=== PATIENT | male | born 1990 | race African-American/Black ===

== ENCOUNTER 2017-12-21 09:56 | Emergency (ER) | payer SELFPAY | END 2017-12-21 10:36 | disposition home or self-care (01) | LOC: NAV ERS 09:56 | DX: J45.991 Cough variant asthma (principal) | CPT/HCPCS: 99283 ==

== ENCOUNTER 2018-01-01 00:05 | Emergency (ER) | payer SELFPAY ==
[2018-01-01] MEDS ORDERED: predniSONE 20 MG TAB ONE (00:42)
== END 2018-01-01 00:58 | disposition home or self-care (01) ==
LOC: NAV ERS 00:05
DX: J45.909 Unspecified asthma, uncomplicated (principal)
CPT/HCPCS: 94640; J7506; J7620

== ENCOUNTER 2018-03-13 02:03 | Emergency (ER) | payer SELFPAY ==
[2018-03-13] MEDS ORDERED: Dexamethasone 4 mg/ml Vial ONE (02:28)
== END 2018-03-13 02:36 | disposition home or self-care (01) ==
LOC: NAV ERS 02:03
DX: J45.901 Unspecified asthma with (acute) exacerbation (principal); F17.210 Nicotine dependence, cigarettes, uncomplicated
CPT/HCPCS: 94640; 96372; J1100; J7620

== ENCOUNTER 2019-09-09 16:51 | Emergency (ER) | payer SELFPAY ==
[2019-09-09] MEDS ORDERED: predniSONE 20 MG TAB ONE (17:32)
[2019-09-09] MEDS ORDERED: Ventolin HFA Inhaler 60 PUFF INHALER ONE (17:32)
--- NOTE | 2019-09-09 18:23 | RAD ---
EXAM: CHEST TWO VIEWS 09/09/2019 6:20 PM HISTORY: Cough COMPARISON: 2 view chest radiograph dated June 15, 2018 from [facility]. FINDINGS: Lungs: No acute airspace consolidation. Heart: Normal in size and contour. Pulmonary Vessels: Normal. Costophrenic Angles: Clear. Pneumothorax: None. Osseous Structures: Intact. Additional Findings: None. IMPRESSION: No significant acute intrathoracic disease.
[2019-09-09 18:33] LABS: Bilirubin Negative (Negative); Blood, Urine Large (Negative); Glucose, Urine (Dipstick) Negative (Negative); Ketone, Urine Negative (Negative); Leukocyte Moderate (Negative); Nitrite Positive (Negative); Protein, Urine (Dipstick) 100 mg/dL (Neg-Trace); Specific Gravity, Urine 1.025 (1.005-1.030); Urobilinogen 0.2 mg/dL (Less than 2); pH, Urine 6.5 (5.0-9.0)
[2019-09-09 18:39] LABS: Clarity Hazy (Clear)
[2019-09-09 18:43] LABS: Bacteria/HPF 4+ HPF (None Seen); RBC/HPF Greater than 50 HPF (0-3); Squamous Epithelial 0-3 HPF (0-3); WBC/HPF Greater Than 50 HPF (0-3)
[2019-09-09] MEDS ORDERED: cefTRIAXone\\ROCEPHIN 2 GM VIAL ONE (18:47)
[2019-09-09] MEDS ORDERED: Sodium Chloride 0.9% 100 ML ONE (18:47)
[2019-09-09 19:12] LABS: #Basophils 0.1 thou/uL (0.0-0.2); #Eosinphils 0.3 thou/uL (0.0-0.7); #Lymphocytes 1.6 thou/uL (1.20-3.40); #Monocytes 0.4 thou/uL (0.11-0.59); #Neutrophils 2.8 thou/uL (1.40-6.50); %Basophils 1.3 % (0.0-1.0); %Eosinophils 5.2 % (0.0-10.0); %Lymphocytes 31.2 % (21.0-51.0); %Monocytes 8.2 % (0.0-10.0); %Neutrophils 54.2 % (42.0-75.0); Hemoglobin 14.2 g/dL (14.0-18.0); Mean Corpuscular HGB CONC 29.2 g/dL (32.0-36.0); Mean Corpuscular Hemoglobin 25.5 pg (27.0-31.0); Mean Corpuscular Volume 87.4 fL (78.0-98.0); Platelet Count 179 thou/uL (130-400); RBC Distribution Width 12.8 % (11.5-14.5); Red Blood Cell (RBC) Count 5.55 mill/uL (4.70-6.10); White Blood Cell (WBC) Count 5.1 thou/uL (4.8-10.8)
[2019-09-09 19:25] LABS: ALT (SGPT) 25 U/L (8-55); AST (SGOT) 24 U/L (5-34); Alkaline Phosphatase 67 U/L (40-110); Anion Gap 14 mmol/L (10-20); BUN (Urea Nitrogen) 17 mg/dL (8.9-20.6); Bilirubin, Total 0.3 mg/dL (0.2-1.2); Calc. Creatinine Clearance 0 mL/min (70-130); Calcium 9.3 mg/dL (7.8-10.44); Carbon Dioxide 22 mmol/L (22-29); Chloride 104 mmol/L (98-107); Estimated GFR-MDRD 68; Globulin 3.8 g/dL (2.4-3.5); Glucose 93 mg/dL (70-105); Potassium 4.3 mmol/L (3.5-5.1); Protein, Total 7.8 g/dL (6.0-8.3); Sodium 136 mmol/L (136-145)
--- NOTE | 2019-09-09 19:27 | CT ---
CT OF THE ABDOMEN AND PELVIS WITHOUT IV CONTRAST INDICATION: Left-sided flank pain COMPARISON: None FINDINGS: The lack of IV contrast limits evaluation of the solid organs of the abdomen and pelvis. ABDOMEN: Lung bases: Clear Liver: No focal lesion. Gallbladder: Normal appearing. Pancreas: Normal. Adrenal glands: Normal. Spleen: Normal. Kidneys and ureters: There are bilateral exophytic lesions, difficult characterize on this noncontras t examination. One of the most prominent is seen off the posterior superior right kidney measuring 1.4 cm. The largest involving the left kidney is seen along the posterior aspect of the left mid kidn ey measuring 1.3 cm. No renal or ureteral calculus is evident. There is mild inflammatory stranding surrounding the left ureter. No hydronephrosis is demonstrated. Vasculature: Normal. Lymph nodes:No lymphadenopathy. Free fluid in abdomen:No free fluid is evident. PELVIS: Small and large bowel: Normal Appendix:Normal Bladder: Wall thickening with perivesicular fat stranding Rectal and perirectal soft tissues:Normal. Reproductive structures: Normal. Free fluid in pelvis: No free fluid is evident. Lymphadenopathy pelvis: No lymphadenopathy is evident. Osseous structures: No acute osseous abnormality. No destructive osteolytic or osteoblastic lesion i s identified. Soft tissues:Normal. IMPRESSION: 1. Cystitis with suspicion for an ascending left urinary tract infection. 2. No renal or ureteral calculus 3. Numerous exophytic lesions off the margins of both kidneys are difficult characterize on this nonc ontrast examination. Recommend nonemergent follow-up renal ultrasound for additional characterization.
== END 2019-09-09 21:15 | disposition home or self-care (01) ==
LOC: NAV ERS 16:51
DX: N12 Tubulo-interstitial nephritis, not specified as acute or chronic (principal); J45.909 Unspecified asthma, uncomplicated; F17.210 Nicotine dependence, cigarettes, uncomplicated
CPT/HCPCS: 71046; 74176; 80053; 81003; 81015; 85025; 87077; 87086; 87186; 96361; 96365; J0696; J3490; J7512

== ENCOUNTER 2020-01-12 22:33 | Emergency (ER) | payer SELFPAY ==
[2020-01-12] MEDS ORDERED: Ventolin HFA Inhaler 60 PUFF INHALER ONE (23:04)
[2020-01-12] MEDS ORDERED: predniSONE 20 MG TAB ONE (23:04)
--- NOTE | 2020-01-13 07:49 | RAD ---
EXAM: CHEST ONE VIEW HISTORY: Dyspnea. COMPARISON: 06/15/2018 FINDINGS: The cardiac silhouette and pulmonary vasculature are within normal limits. The lungs are clear. The o sseous structures are intact. No interval change from prior study. IMPRESSION: No acute cardiopulmonary process.
[2020-01-14 17:33] LABS: SARS-CoV-2 MS2 Positive; SARS-CoV-2 N Gene Negative; SARS-CoV-2 S Gene Negative; SARS-CoV-2 by NAA Not Detected (NotDetected); SARS-CoV-2 orf1ab Negative
== END 2020-01-13 00:02 | disposition home or self-care (01) ==
LOC: NAV ERS 22:33
DX: J45.909 Unspecified asthma, uncomplicated (principal); Z20.828 Contact with and (suspected) exposure to other viral communicable diseases; F17.210 Nicotine dependence, cigarettes, uncomplicated
CPT/HCPCS: 71045; 87635; 99406; J7512; U0003

== ENCOUNTER 2020-05-23 13:40 | Emergency (ER) | payer OTHER, SELFPAY ==
[2020-05-23] MEDS ORDERED: methylPREDNISolone Sod Succ/PF 125 MG/2 ML VIAL ONE (14:16)
== END 2020-05-23 14:53 | disposition home or self-care (01) ==
LOC: NAV ERS 13:40
DX: J45.901 Unspecified asthma with (acute) exacerbation (principal); F17.210 Nicotine dependence, cigarettes, uncomplicated
CPT/HCPCS: 94640; 96372; J2930; J7620

== ENCOUNTER 2020-09-22 11:29 | Emergency (ER) | payer SELFPAY ==
[2020-09-23 12:30] LABS: SARS-CoV-2 PCR by NAA Not Detected (NotDetected)
== END 2020-09-22 12:30 | disposition home or self-care (01) ==
LOC: NAV ERS 11:29
DX: J06.9 Acute upper respiratory infection, unspecified (principal); Z20.822 Contact with and (suspected) exposure to COVID-19; J45.909 Unspecified asthma, uncomplicated; F17.210 Nicotine dependence, cigarettes, uncomplicated
CPT/HCPCS: 99284; U0003; U0005

== ENCOUNTER 2020-12-03 09:50 | Emergency (ER) | payer SELFPAY | END 2020-12-03 10:35 | disposition home or self-care (01) | LOC: NAV ERS 09:50 | DX: I10 Essential (primary) hypertension (principal); F17.210 Nicotine dependence, cigarettes, uncomplicated | CPT/HCPCS: 99283 ==